=== PATIENT | male | born 1975 | race Two or more races ===

== ENCOUNTER 2021-01-16 09:59 | Emergency (ER) | payer MEDICAID ==
[~2021-01-16] VITALS: Ht 182.9 cm; Wt 120.0 kg
--- NOTE | 2021-01-16 10:17 | NUR ---
pT WALKED BACK FROM [facility] WITH CHIEF COMPLAINT OF BILAT ANKLE SWELLING FOR TWO DAYS. PT DENIES ANY OTHER SYMPTOMS.
--- NOTE | 2021-01-16 11:01 | NUR ---
RECEIVED REPORT FROM ROSITA HARTMAN. ASSUMING CARE AT THIS TIME. PT RESTING COMFORTABLY ON GURNEY. NADN. EKG COMPLETE
[2021-01-16 11:02] LABS: BASOPHILS % (AUTO) 2 % (0-1); EOSINOPHILS % (AUTO) 1 % (1-7); LYMPHOCYTES % (AUTO) 29 % (22-44); MEAN CORPUSCULAR HEMOGLOBIN 33.5 pg (27.5-34.5); MEAN CORPUSCULAR HGB CONC 33.3 g/dL (33.2-36.2); MEAN PLATELET VOLUME 8.7 fL (7.4-10.4); MONOCYTES % (AUTO) 10 % (2-9); NEUTROPHILS % (AUTO) 58 % (42-75); PLATELET COUNT 104 x10^3/uL (130-400); RED BLOOD COUNT 3.86 x10^6/uL (4.38-5.82); RED CELL DISTRIBUTION WIDTH 16.9 % (9.4-14.8)
[2021-01-16 11:05] LABS: MD NO
[2021-01-16 11:14] LABS: ALBUMIN 2.4 g/dL (3.4-5.0); ANION GAP 5 mmol/L (5-15); CALCIUM 7.8 mg/dL (8.5-10.1); CHLORIDE 110 mmol/L (98-107)
[2021-01-16 11:22] LABS: ALANINE AMINOTRANSFERASE 52 U/L (12-78); ALKALINE PHOSPHATASE 189 U/L (45-117); BILIRUBIN,TOTAL 3.3 mg/dL (0.2-1.0); CREATININE 0.55 mg/dL (0.7-1.3); TOTAL PROTEIN 7.2 g/dL (6.4-8.2)
--- NOTE | 2021-01-16 11:26 | NUR ---
ALL RESULTS ARE BACK AT THIS TIME. CHART UP FOR RECHECK.
[2021-01-16 11:40] VITALS: BP 129/69
== END 2021-01-16 12:23 | disposition home or self-care (01) ==
LOC: ED 10:35
DX: R60.0 Localized edema (principal); R07.89 Other chest pain; F17.200 Nicotine dependence, unspecified, uncomplicated
CPT/HCPCS: 36415; 71045; 80053; 83880; 85025; 93005; 99285

== ENCOUNTER 2021-03-13 06:07 | Emergency (ER) | payer MEDICAID, OTHER ==
[~2021-03-13] VITALS: Ht 182.9 cm; Wt 121.0 kg
--- NOTE | 2021-03-13 06:20 | NUR ---
INITIAL PT CONTACT. PT PRESENTS TO ED C/O LEFT SIDED GROIN PAIN X MULTIPLE MONTHS, "IT COMES AND GOES, BUT IT HAS BEEN THERE AWHILE. MY TESTICLES ARE ALSO SUPER BIG AND SWOLLEN, NOT NORMAL FOR ME." PT DENIES ANY URINARY COMPLAINTS. PT SITTING UPRIGHT ON GURNEY, NADN, VSS. PT DENIES ANY NEEDS AT THIS TIME. CALL LIGHT AND PERSONAL BELONGINGS WITHIN REACH. AWAITING ERP.
--- NOTE | 2021-03-13 06:48 | NUR ---
ERP AT BEDSIDE
--- NOTE | 2021-03-13 06:51 | NUR ---
REPORT TO HEYDI HARTMAN
[2021-03-13 07:17] VITALS: BP 128/62
[2021-03-13 07:18] LABS: BASOPHILS % (AUTO) 1 % (0-1); EOSINOPHILS % (AUTO) 1 % (1-7); LYMPHOCYTES % (AUTO) 13 % (22-44); MEAN CORPUSCULAR HEMOGLOBIN 37.1 pg (27.5-34.5); MEAN CORPUSCULAR HGB CONC 34.1 g/dL (33.2-36.2); MEAN PLATELET VOLUME 9.1 fL (7.4-10.4); MONOCYTES % (AUTO) 12 % (2-9); NEUTROPHILS % (AUTO) 73 % (42-75); PLATELET COUNT 143 x10^3/uL (130-400); RED BLOOD COUNT 3.16 x10^6/uL (4.38-5.82); RED CELL DISTRIBUTION WIDTH 14.3 % (9.4-14.8)
--- NOTE | 2021-03-13 07:18 | NUR ---
ASSUMING CARE OF PATIENT AFTER BEDSIDE REPORT. PT ATTACHED TO MONITORS. VSS. THOMAS.
[2021-03-13 07:27] LABS: ALANINE AMINOTRANSFERASE 89 U/L (12-78); ALBUMIN 1.8 g/dL (3.4-5.0); ANION GAP 8 mmol/L (5-15); CALCIUM 7.8 mg/dL (8.5-10.1); CHLORIDE 107 mmol/L (98-107); CREATININE 0.69 mg/dL (0.7-1.3)
[2021-03-13 07:32] LABS: ALKALINE PHOSPHATASE 200 U/L (45-117); BILIRUBIN,TOTAL 6.7 mg/dL (0.2-1.0); TOTAL PROTEIN 6.6 g/dL (6.4-8.2)
--- NOTE | 2021-03-13 09:28 | NUR ---
Patient given discharge instructions and they have confirmed that they understand the instructions. Patient ambulatory with steady gait. NAD, all questions answered appropriately, denies additional needs at this time. No personal belongings left in room after discharge.
== END 2021-03-13 09:29 | disposition home or self-care (01) ==
LOC: ED 06:56
DX: E80.6 Other disorders of bilirubin metabolism (principal); R60.0 Localized edema; F17.200 Nicotine dependence, unspecified, uncomplicated; R94.31 Abnormal electrocardiogram [ECG] [EKG]
CPT/HCPCS: 36415; 71045; 80053; 80074; 83690; 83880; 85025; 93005; 99285